=== PATIENT | female | born 1950 | race Caucasian/White ===

== ENCOUNTER 2020-05-28 13:04 | Outpatient (CLI) | payer MEDICARE, OTHER | END 2020-05-28 13:05 | disposition home or self-care (01) | LOC: COV 13:04 | PROVIDERS: ATTEND Internal Medicine | DX: Z20.828 Contact with and (suspected) exposure to other viral communicable diseases (principal) ==

== ENCOUNTER 2020-08-13 10:30 | Outpatient (CLI) | payer MEDICARE, OTHER | END 2020-08-13 23:59 | disposition home or self-care (01) | LOC: COV 10:30 | PROVIDERS: ATTEND Internal Medicine | DX: Z20.828 Contact with and (suspected) exposure to other viral communicable diseases (principal) ==